=== PATIENT | male | born 1960 | race Two or more races ===

== ENCOUNTER 2017-08-15 17:55 | Emergency (ER) | payer SELFPAY ==
[~2017-08-15] VITALS: Ht 180.3 cm; Wt 110.0 kg
[2017-08-15] MEDS ORDERED: GLIP5TAB12 PO (18:01)
[2017-08-15] MEDS ORDERED: METF-816 PO (18:01)
[2017-08-15] MEDS ORDERED: INSULIN (18:01)
[2017-08-15] MEDS ORDERED: DEXTROSE 50% WATER 50ML SYRINGE IV ONE (18:45)
[2017-08-15 19:03] LABS: HEMATOCRIT. 43.5 % (42.0-52.0); MEAN CORPUSCULAR HEMOGLOBIN 21.9 pg (28.0-32.0); MEAN PLATELET VOLUME 9.2 fl (7.4-10.4); PLATELET 213 x1000/uL (130-400); RED CELL DISTRIBUTION WIDTH 16.1 % (11.6-14.6)
[2017-08-15 19:08] LABS: CHLORIDE 106 mEq/L (98-107)
[2017-08-15 19:11] LABS: PARTIAL THROMBOPLASTIN TIME 23.8 sec (23.4-31.0); PROTHROMBIN TIME 10.8 sec (9.4-11.6)
[2017-08-15 19:45] LABS: PLATELET ESTIMATE NORMAL
[2017-08-15 22:35] VITALS: BP 159/62
== END 2017-08-15 22:59 | disposition home or self-care (01) ==
LOC: ER 17:55
DX: E11.649 Type 2 diabetes mellitus with hypoglycemia without coma (principal); Z79.4 Long term (current) use of insulin
CPT/HCPCS: 36415; 71045; 80053; 82962; 83690; 83880; 84484; 85025; 85610; 85730; 93005; 96374; 99285